=== PATIENT | female | born 1995 | race American Indian/Alaskan Native ===

== ENCOUNTER 2020-06-24 18:38 | Emergency (ER) | payer SELFPAY ==
[2020-06-24 19:11] VITALS: BP 98/57
[2020-06-24 20:08] LABS: HCG Qualitative,Urine Negative (Negative)
[2020-06-24 20:11] LABS: Bilirubin,Urine NEG (Negative); Blood,Urine NEG (Negative); Color,Urine Yellow (Yellow); Mucus,Urine FEW /HPF; Protein,Urine <15 mg/dL mg/dL (Negative)
--- NOTE | 2020-06-24 20:11 | Emergency Department Report ---
ED Female HPI - General Chief complaint: Urogenital-Female Stated complaint: VAGINAL ODOR/ANKLE PAIN Time Seen by Provider: 06/24/20 20:04 Source: patient Mode of arrival: Ambulatory Limitations: No Limitations - History of Present Illness Initial comments: This is a 25-year-old female who presents the ED complaining of watery, clear vaginal discharge and odor for the past 1 month. Patient states that she is sexually active with one partner. Patient denies any pelvic pain, fever, abnormal vaginal bleeding. Patient states last menstrual period as 06/18/2020. Patient is also complaining of right ankle pain status post her surgery 4 years ago after an injury. Patient states that in the past week she has been having right ankle pain throbbing in nature due to prolonged standing. Patient denies any recent injury. MD Complaint: vaginal discharge - Related Data Previous Rx's Medication Instructions Recorded Last Taken Type Ibuprofen [Motrin] 800 mg PO Q8HR #30 tablet 06/24/20 Unknown Rx metroNIDAZOLE [Flagyl TAB] 500 mg PO Q12HR #14 tab 06/24/20 Unknown Rx Allergies Allergy/AdvReac Type Severity Reaction Status Date / Time [place] [employer] Allergy Hives Verified 06/24/20 19:18 ED Review of Systems ROS: Stated complaint: VAGINAL ODOR/ANKLE PAIN Other details as noted in HPI Comment: All other systems reviewed and negative ED Past Medical Hx - Past Medical History Previous Medical History?: Yes Additional medical history: Chronic Right Ankle Pain - Surgical History Past Surgical History?: Yes Additional Surgical History: Reconstruction Right Ankle 2017 at [place] - Social History Smoking Status: Never Smoker Substance Use Type: Marijuana - Medications Home Medications: Home Medications Medication Instructions Recorded Confirmed Last Taken Type Ibuprofen [Motrin] 800 mg PO Q8HR #30 tablet 06/24/20 Unknown Rx metroNIDAZOLE [Flagyl TAB] 500 mg PO Q12HR #14 tab 06/24/20 Unknown Rx ED Physical Exam - General Limitations: No Limitations General appearance: alert, in no apparent distress - Head Head exam: Present: atraumatic, normocephalic - Eye Eye exam: Present: normal appearance - ENT ENT exam: Present: mucous membranes moist - Neck Neck exam: Present: normal inspection - Respiratory Respiratory exam: Present: normal lung sounds bilaterally. Absent: respiratory distress - Cardiovascular Cardiovascular Exam: Present: regular rate, normal rhythm. Absent: systolic murmur, diastolic murmur, rubs, gallop - GI/Abdominal GI/Abdominal exam: Present: soft, normal bowel sounds - Extremities Exam Extremities exam: Present: normal inspection, full ROM, tenderness (Mild tenderness to palpation after right medial ankle, old surgical scars noted). Absent: normal capillary refill, pedal edema, joint swelling - Back Exam Back exam: Present: normal inspection. Absent: CVA tenderness (R), CVA tenderness (L) - Neurological Exam Neurological exam: Present: alert, oriented X3, normal gait - Psychiatric Psychiatric exam: Present: normal affect, normal mood - Skin Skin exam: Present: warm, dry, intact, normal color. Absent: rash ED Course Vital Signs 06/24/20 06/24/20 19:08 19:21 Temperature 98.7 F Pulse Rate 82 Respiratory 19 Rate Blood Pressure 98/57 O2 Sat by Pulse 100 Oximetry ED Medical Decision Making - Radiology Data . - Medical Decision Making 25-year-old female presents with vaginitis. Prescriptions given to patient. We discussed with patient to follow-up with [facility]. I did discuss with patient to follow-up with health department or [facility] for STD testing. I discussed all findings with the patient. Patient is in no acute distress she understands directions and will follow-up. I did discuss with patient to follow-up with orthopedic regarding her chronic ankle pain. She understands instructions and states will follow up Silverio wrap applied to ankle prior to discharge. Critical care attestation.: If time is entered above; I have spent that time in minutes in the direct care of this critically ill patient, excluding procedure time. ED Disposition Clinical Impression: Vaginitis, Right ankle pain Disposition: - TO HOME OR SELFCARE Is pt being admited?: No Does the pt Need Aspirin: No Condition: Stable Instructions: Elastic Bandage and RICE Therapy, Bacterial Vaginosis, [id number], Muscle Strain, Vaginitis Additional Instructions: Make sure to follow up with the primary care physician as discussed. Take all your medications as you've been prescribed. If you have any worsening symptoms or develop new symptoms please return to ED immediately. Prescriptions: metroNIDAZOLE [Flagyl TAB] 500 mg PO Q12HR #14 tab Ibuprofen [Motrin] 800 mg PO Q8HR #30 tablet Referrals: [facility] [Outside] - 3-5 Days [facility] [Outside] - 3-5 Days Forms: Accompanied Note, Work/School Release Form(ED) Time of Disposition: 21:22
== END 2020-06-24 21:37 | disposition home or self-care (01) ==
LOC: ED 18:38
DX: N76.0 Acute vaginitis (principal); M25.571 Pain in right ankle and joints of right foot; F12.10 Cannabis abuse, uncomplicated; Z79.899 Other long term (current) drug therapy; Z88.8 Allergy status to other drugs, medicaments and biological substances
CPT/HCPCS: 81001; 81025; 87086; 87210; 99283